=== PATIENT | male | born 1990 | race Hispanic/Latino ===

== ENCOUNTER 2019-05-31 19:16 | Inpatient (IN) | payer OTHER ==
[~2019-05-31] VITALS: Ht 170.2 cm; Wt 72.6 kg
[2019-05-31] MEDS ORDERED: SODIUM CHLORIDE 0.9% 1000ML 1,000 ML IV STA (19:41)
[2019-05-31] MEDS ORDERED: ONDANSETRON HCL INJ 2MG/ML 2ML 2 MG/ML VIAL ONE (19:51)
[2019-05-31] MEDS ORDERED: ONDANSETRON HCL INJ 2MG/ML 2ML 2 MG/ML VIAL IV ONE (20:00)
[2019-05-31] MEDS ORDERED: FAMOTIDINE 20 MG/2 ML VIAL IV ONE (20:00)
--- NOTE | 2019-05-31 20:21 | Diagnostic Imaging Report ---
EXAMINATION: Head CT without contrast. HISTORY:Altered mental status. COMPARISON:None. TECHNIQUE: Multidetector axial images were obtained from the foramen magnum to the vertex without contrast. The images were reconstructed using brain and bone algorithms. Thin section brain images were reformatted into coronal and sagittal planes. Dose modulation, iterative reconstruction, and/or weight based adjustment of the mA/kV was utilized to reduce the radiation dose to as low as reasonably achievable. Intravenous contrast: None IMAGE QUALITY: Acceptable. FINDINGS: Skull/scalp: No lytic or blastic. lesions. No surgical changes. Parenchyma: No abnormal density. No acute hemorrhage, mass or acute major vascular territorial infarct. Arteries: No density suggestive of thrombosis. Dural sinuses: No abnormal density suggestive of thrombosis. Ventricles: No hydrocephalus or displacement. Extra-axial spaces: No abnormal density. Brain volume: Normal for age. Craniocervical junction: No mass, Chiari malformation, or basilar invagination. Sella: No mass. Paranasal/mastoid sinuses: Imaged portions unremarkable. IMPRESSION: No intracranial abnormality. Signed by: Dr. Kirsten Fung M.D. on 05/31/2019 8:18 PM
[2019-05-31 21:30] LABS: ALANINE AMINOTRANSFERASE 129 IU/L (0-55); ALBUMIN 2.9 g/dL (3.5-5.0); ALBUMIN/GLOBULIN RATIO 1.1 (0.8-2.0); ALKALINE PHOSPHATASE 108 IU/L (40-150); ANION GAP 12.9 mmol/L (8-16); BLOOD UREA NITROGEN 17 mg/dL (7-26); BUN/CREATININE RATIO 21 (6-25); CALCIUM 7.8 mg/dL (8.4-10.2); CARBON DIOXIDE 40 mmol/L (22-29); CHLORIDE 61 mmol/L (98-107); EST GLOMERULAR FILTRATION RATE > 60 ML/MIN (60-); GLUCOSE 105 mg/dL (74-118); LIPASE 97 U/L (8-78)
[2019-05-31 21:32] LABS: POTASSIUM 1.9 mmol/L (3.5-5.1); SODIUM 112 mmol/L (136-145)
[2019-05-31 21:35] LABS: BASOPHILS % 0.2 % (0.0-1.0); EOSINOPHILS % 0.1 % (0.0-6.0); HEMOGLOBIN 12.3 g/dL (14.0-18.0); LYMPHOCYTES # (AUTO) 0.8 (1.0-3.2); LYMPHOCYTES % 5.7 % (18.0-39.1); MEAN CORPUSCULAR HEMOGLOBIN 32.2 pg (28-32); MEAN CORPUSCULAR HGB CONC 37.4 g/dL (31-35); MEAN CORPUSCULAR VOLUME 86.1 fL (81-99); MONOCYTES # (AUTO) 1.4 (0.2-0.8); NEUTROPHILS # (AUTO) 11.1 (2.1-6.9); NEUTROPHILS % 82.5 % (38.7-80.0); RED BLOOD COUNT 3.82 x10e6/uL (4.3-5.7)
[2019-05-31] MEDS ORDERED: SODIUM CHLORIDE 3% 500 ML IV ONE (21:45)
[2019-05-31] MEDS ORDERED: POTASSIUM CHLORIDE 10MEQ/100ML 100 ML IV ONE (21:45)
[2019-05-31] MEDS ORDERED: ONDANSETRON HCL INJ 2MG/ML 2ML 2 MG/ML VIAL IV PRN (21:45)
[2019-05-31] MEDS ORDERED: POTASSIUM CHLORIDE 10MEQ EA ONE (21:57)
[2019-05-31 22:03] LABS: PLATELET COUNT 44 x10e3/uL (140-360)
[2019-05-31 22:04] LABS: HEMATOCRIT 32.9 % (38.2-49.6)
[2019-05-31 22:16] LABS: BILIRUBIN,URINE SMALL (NEGATIVE); CLARITY,URINE CLEAR (CLEAR); COLOR,URINE YELLOW (YELLOW); KETONES,URINE TRACE (NEGATIVE); LEUKOCYTE ESTERASE ,URINE NEGATIVE (NEGATIVE); NITRITE,URINE NEGATIVE (NEGATIVE); PROTEIN,URINE DIPSTICK TRACE (NEGATIVE); URINE UROBILINOGEN 4 mg/dL (0.2 - 1)
[2019-05-31 22:21] LABS: AMPHETAMINES SCREEN,URINE NEGATIVE (NEGATIVE); BENZODIAZEPINES SCREEN,URINE NEGATIVE (NEGATIVE); PHENCYCLIDINE SCREEN,URINE NEGATIVE (NEGATIVE)
[2019-05-31 22:27] LABS: BACTERIA,URINE RARE /HPF; RBC,URINE 0-5 /HPF (0-5); WBC,URINE (MAN) 0-5 /HPF (0-5)
[2019-05-31 22:28] LABS: EPITHELIAL CELLS,URINE FEW /LPF
[2019-05-31] MEDS ORDERED: POTASSIUM CHLORIDE 10MEQ EA PO ONE (22:30)
[2019-05-31] MEDS ORDERED: SODIUM CHLORIDE 0.9% 500ML 500 ML ONE (23:07)
[2019-05-31] MEDS: SODIUM CHLORIDE 0.9% 1000ML 1,000 ML IV SCH (23:15)
[2019-05-31 23:23] LABS: LYMPHOCYTES % (MANUAL) 7 % (19-48); MONOCYTES % (MANUAL) 12 % (3.4-9.0); NEUTROPHILS % (MANUAL) 81 % (40-74)
[2019-05-31 23:24] LABS: PLATELET MORPHOLOGY COMMENT FEW EDTA CLUMPING; RBC MORPHOLOGY COMMENT NORMAL
[2019-05-31 23:25] LABS: PLATELET ESTIMATE SLIGHTLY DECREASED
--- NOTE | 2019-05-31 23:41 | Diagnostic Imaging Report ---
EXAM: CT Abdomen and Pelvis WITH contrast INDICATION: Epigastric pain COMPARISON: None. TECHNIQUE: Abdomen and pelvis were scanned utilizing a multidetector helical scanner from the lung base to the pubic symphysis after administration of IV contrast. Coronal and sagittal reformations were obtained. Routine protocol was performed. Scan was performed when during portal venous phase. IV CONTRAST: 100 mL of Isovue 370 ORAL CONTRAST: None COMPLICATIONS: None RADIATION DOSE: Total DLP: 180 mGy*cm Estimated effective dose: (DLP x 0.015 x size factor) mSv CTDIvol has been reviewed. It is below the limits set by the Radiation Protocol Committee (RPC). Dose modulation, iterative reconstruction, and/or weight based adjustment of the mA/kV was utilized to reduce the radiation dose to as low as reasonably achievable. FINDINGS: LINES and TUBES: None. LOWER THORAX: Unremarkable HEPATOBILIARY: No focal hepatic lesions. No biliary ductal dilation. GALLBLADDER: No radio-opaque stones or sludge. No wall thickening. SPLEEN: No splenomegaly. PANCREAS: No focal masses or ductal dilatation. ADRENALS: No adrenal nodules KIDNEYS/URETERS: Kidneys enhance symmetrically. No hydronephrosis. No solid masses. A 1.4 cm left renal simple cyst. No stones. GI TRACT: Mild circumferential thickening and edema of the distal esophageal wall. No abnormal distention, wall thickening, or evidence of bowel obstruction. Appendix is normal. PELVIC ORGANS/BLADDER: Unremarkable. LYMPH NODES: No lymphadenopathy. VESSELS: Unremarkable. PERITONEUM / RETROPERITONEUM: No free air or fluid. BONES: Partial lumbarization of S1. SOFT TISSUES: Unremarkable. IMPRESSION: Findings suggestive of esophagitis. Signed by: Tony Goodwin DO on 05/31/2019 11:37 PM
--- OUTSIDE RECORDS SUMMARY | 2019-05-31 23:58 | XMS REPORT ---
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 Allergies, Adverse Reactions, Alerts This patient has no known allergies or adverse reactions. Medications This patient has no known medications. Results Test Description Test Time Test Comments Text Results Atomic Results Result Comments CT ABDOMEN/PELVIS W 2019-05-31 23:34:00 [place] [address] Patient Name: MICHELE DALTON MR #: [id number] : 1990 Age/Sex: 28/M Req #: [id number] Adm Physician: Ordered by: GRACE HILARIO DO Report #: [id number] Location: ER Room/Bed: Procedure: [id number] CT/CT ABDOMEN/PELVIS W Exam Date: 05/31/19 Exam Time: 2214 REPORT STATUS: Signed EXAM: CT Abdomen and Pelvis WITH contrast INDICATI ON: Epigastric pain COMPARISON: None. TECHNIQUE: Abdomen and pelvis were scanned utilizing a multidetector helical scanner from the lung base to the pubic symphysis after administration of IV contrast. Coronal and sagittal reformations were obtained. Routine protocol was performed. Scan was performed when during portal venous phase. IV CONTRAST: 100 mL of Isovue 370 ORAL CONTRAST: None COMPLICATIONS: None RADIATION DOSE: Total DLP: 180 mGy*cm Estimated effective dose: (DLP x 0.015 x size factor) mSv CTDIvol has been reviewed. It is below the limits set by the Radiation Protocol Committee (RPC). Dose modulation, iterative reconstruction, and/or weight based adjustment of the mA/kV was utilized to reduce the radiation dose to as low as reasonably achievable. FINDINGS: LINES and TUBES: None. LOWER THORAX: Unremarkable HEPATOBILIARY: No focal hepatic lesions. No biliary ductal dilation. GALLBLADDER: No radio-opaque stones or sludge. No wall thickening. SPLEEN: No splenomegaly. PANCREAS: No focal masses or ductal dilatation. ADRENALS: No adrenal nodules KIDNEYS/URETERS: Kidneys enhance symmetrically. No hydronephrosis. No solid masses. A 1.4 cm left renal simple cyst. No stones. GI TRACT: Mild circumferential thickening and edema of the distal esophageal wall. No abnormal distention, wall thickening, or evidence of bowel obstruction. Appendix is normal. PELVIC ORGANS/BLADDER: Unremarkable. LYMPH NODES: No lymphadenopathy. VESSELS: Unremarkable. PERITONEUM / RETROPERITONEUM: No free air or fluid. BONES: Partial lumbarization of S1. SOFT TISSUES: Unremarkable. IMPRESSION: Findings suggestive of esophagitis. Signed by: Tony Goodwin DO on 05/31/2019 11:37 PM Dictated By: TONY GOODWIN DO 36 Transcribed By: WHITNEY on 05/31/192336 COPY TO: GRACE HILARIO DO CT BRAIN WO 2019-05-31 20:16:00 [place] [address] Patient Name: MICHELE DALTON MR #: [id number] : 1990 Age/Sex: 28/M Req #: [id number] Adm Physician: Ordered by: GRACE HILARIO DO Report #: [id number] Location: Room/Bed: Procedure: [id number] CT/CT BRAIN WO Exam Date: 05/31/19 Exam Time: 2004 REPORT STATUS: Signed EXAMINATION: Head CT without contrast. HISTORY:Alter ed mental status. COMPARISON:None. TECHNIQUE: Multidetector axial images were obtained from the foramen magnum to the vertex without contrast. The images were reconstructed using brain and bone algorithms. Thin section brain images were reformatted into coronal and sagittal planes. Dose modulation, iterative reconstruction, and/or weight based adjustment of the mA/kV was utilized to reduce the radiation dose to as low as reasonably achievable. Intravenous contrast: None IMAGE QUALITY: Acceptable. FINDINGS: Skull/scalp: No lytic or blastic. lesions. No surgical changes. Parenchyma: No abnormal density. No acute hemorrhage, mass or acute major vascular territorial infarct. Arteries: No density suggestive of thrombosis. Dural sinuses: No abnormal density suggestive of thrombosis. Ventricles: No hydrocephalus or displacement. Extra- axial spaces: No abnormal density. Brain volume: Normal for age. Craniocervical junction: No mass, Chiari malformation, or basilar invagination. Sella: No mass. Paranasal/mastoid sinuses: Imaged portions unremarkable. IMPRESSION: No intracranial abnormality. Signed by: Dr. Kirsten Fung M.D. on 05/31/2019 8:18 PM Dictated By: KIRSTEN FUNG MD 17 Transcribed By: WHITNEY on 05/31/192017 COPY TO: GRACE HILARIO DO
[2019-06-01] VITALS (21 sets, daily range): BP systolic 108–147; BP diastolic 49–106
--- NOTE | 2019-06-01 | NUR ---
Report received from Odilia DEL CID.
[2019-06-01] MEDS ORDERED: SODIUM CHLORIDE 0.9% 50ML 50 ML ONE (00:38)
[2019-06-01] MEDS ORDERED: IOPAMIDOL 370 MG/ML 200 ML INFUS..BTL INJ ONE (00:38)
--- NOTE | 2019-06-01 01:50 | NUR ---
New orders received from Dr. Abby Navarrete, refer to forder operator.
[2019-06-01] MEDS: SODIUM CHLORIDE 0.9% 1000ML 1,000 ML IV SCH ×3 (02:01→23:54)
[2019-06-01 04:16] LABS: BASOPHILS % 0.2 % (0.0-1.0); EOSINOPHILS % 0.2 % (0.0-6.0); HEMATOCRIT 33.4 % (38.2-49.6); HEMOGLOBIN 12.5 g/dL (14.0-18.0); LYMPHOCYTES # (AUTO) 1.1 (1.0-3.2); LYMPHOCYTES % 9.9 % (18.0-39.1); MEAN CORPUSCULAR HEMOGLOBIN 31.6 pg (28-32); MEAN CORPUSCULAR HGB CONC 37.4 g/dL (31-35); MEAN CORPUSCULAR VOLUME 84.6 fL (81-99); MONOCYTES # (AUTO) 1.3 (0.2-0.8); MONOCYTES % 11.9 % (4.4-11.3); NEUTROPHILS # (AUTO) 8.4 (2.1-6.9); NEUTROPHILS % 76.5 % (38.7-80.0); PLATELET COUNT 130 x10e3/uL (140-360); RED BLOOD COUNT 3.95 x10e6/uL (4.3-5.7); RED CELL DISTRIBUTION WIDTH 11.3 % (11.7-14.4)
[2019-06-01 04:59] LABS: ALANINE AMINOTRANSFERASE 126 IU/L (0-55); ALBUMIN 2.8 g/dL (3.5-5.0); ALBUMIN/GLOBULIN RATIO 1.1 (0.8-2.0); ALKALINE PHOSPHATASE 96 IU/L (40-150); ANION GAP 11.8 mmol/L (8-16); CALCIUM 8.1 mg/dL (8.4-10.2); CHLORIDE 67 mmol/L (98-107); CREATININE, SERUM 0.78 mg/dL (0.72-1.25); EST GLOMERULAR FILTRATION RATE > 60 ML/MIN (60-); GLUCOSE 102 mg/dL (74-118); MAGNESIUM 2.5 MG/DL (1.3-2.1); PHOSPHORUS 1.3 MG/DL (2.3-4.7)
[2019-06-01 05:05] LABS: CARBON DIOXIDE 42 mmol/L (22-29); POTASSIUM 1.8 mmol/L (3.5-5.1); SODIUM 119 mmol/L (136-145)
[2019-06-01] MEDS ORDERED: POTASSIUM CHLORIDE 20MEQ/100ML 200 ML IV ONE (05:15)
[2019-06-01] MEDS ORDERED: POTASSIUM CHLORIDE 20 MEQ TAB CR PO ONE (05:15)
[2019-06-01 05:22] LABS: BLOOD UREA NITROGEN 13 mg/dL (7-26); BUN/CREATININE RATIO 17 (6-25)
[2019-06-01] MEDS ORDERED: DIPHENOXYLATE/ATROPINE TAB PO ONE (05:45)
[2019-06-01 07:54] LABS: PLATELET ESTIMATE SLIGHTLY DECREASED; PLATELET MORPHOLOGY COMMENT NORMAL
[2019-06-01 08:19] LABS: BASOPHILS % 0.3 % (0.0-1.0); EOSINOPHILS % 0.1 % (0.0-6.0); HEMATOCRIT 35.2 % (38.2-49.6); HEMOGLOBIN 13.3 g/dL (14.0-18.0); LYMPHOCYTES # (AUTO) 0.9 (1.0-3.2); LYMPHOCYTES % 6.7 % (18.0-39.1); MEAN CORPUSCULAR HEMOGLOBIN 32.1 pg (28-32); MEAN CORPUSCULAR HGB CONC 37.8 g/dL (31-35); MONOCYTES # (AUTO) 1.4 (0.2-0.8); MONOCYTES % 10.5 % (4.4-11.3); NEUTROPHILS # (AUTO) 10.9 (2.1-6.9); NEUTROPHILS % 80.9 % (38.7-80.0); PLATELET COUNT 128 x10e3/uL (140-360); RED BLOOD COUNT 4.14 x10e6/uL (4.3-5.7); RED CELL DISTRIBUTION WIDTH 11.3 % (11.7-14.4)
[2019-06-01 08:42] LABS: ALANINE AMINOTRANSFERASE 137 IU/L (0-55); ALKALINE PHOSPHATASE 98 IU/L (40-150); ANION GAP 11.2 mmol/L (8-16); BLOOD UREA NITROGEN 10 mg/dL (7-26); BUN/CREATININE RATIO 14 (6-25); CALCIUM 8.1 mg/dL (8.4-10.2); CARBON DIOXIDE 36 mmol/L (22-29); CHLORIDE 79 mmol/L (98-107); CREATININE, SERUM 0.74 mg/dL (0.72-1.25); EST GLOMERULAR FILTRATION RATE > 60 ML/MIN (60-); GLUCOSE 116 mg/dL (74-118); SODIUM 124 mmol/L (136-145)
[2019-06-01] MEDS: DIPHENOXYLATE/ATROPINE TAB PO PRN ×3 (08:44→19:44)
[2019-06-01 08:50] LABS: POTASSIUM 2.2 mmol/L (3.5-5.1)
[2019-06-01] MEDS ORDERED: POTASSIUM CHLORIDE 20 MEQ TAB CR PO SCH (09:00)
[2019-06-01] MEDS ORDERED: POTASSIUM CHLORIDE 10MEQ EA PO SCH ×2 (09:00)
[2019-06-01 09:04] LABS: MAGNESIUM 2.3 MG/DL (1.3-2.1)
--- NOTE | 2019-06-01 09:17 | NUR ---
H&P cc: lethargy and generalized weakness HPI: 28yoM, PCP none, developed fatigue, found to be severe hyponatremic. Family notes that pt was lethargic and weak. Ongoing for 2 days; Pt also had diarrhea at home, unknown amount. Further questioning reveals that pt drinks about 3 cans of alcohol/whisky about 4 days at times, admits to binge drinking. PMH:none PSHx: none Allergies; see emr FH/SH: single; occ etoh; no cigs; MEds; see MAR ROS: no f/c/s/N/V/D/CP/sob/vision changes/skin rash/dizziness. v/s; revd PE: nad anicteric ns1s2 mod bs soft nt nd no e/t a&ox3; arenas skin dry n. affect labs/meds; revd A/P: 28yoM Severe hyponatremia Thrombocytopenia Hypophosphatemia Transaminitis Hypokalemia Alcoholism "Beer potomaina" PLAN 3% saline overnight; now stop and change to NS Hepatitis panel SW for counseling on alcoholism/AA/resources SCD folic acid/thiamine Dispo: cct>35mins Silver Carvajal MD, PhD.
[2019-06-01] MEDS: FOLIC ACID 1 MG TAB PO SCH (11:01)
[2019-06-01] MEDS: THIAMINE HCL 100 MG TAB PO SCH (11:01)
--- NOTE | 2019-06-01 11:09 | Diagnostic Imaging Report ---
RIGHT UPPER QUADRANT ULTRASOUND TECHNIQUE: Ultrasound evaluation of the right upper quadrant abdomen. Color Doppler evaluation was utilized to supplement the evaluation. HISTORY: Elevated liver enzymes COMPARISON: None available. DISCUSSION: LIVER: No focal lesion identified. The liver measures 16 cm in length in the right mid-clavicular line. BILIARY: Echogenic debris within the gallbladder, but no gallbladder stone, wall thickening, or pericholecystic fluid. The sonographic Morales's sign is reported as negative. Common bile duct measures 0.2 cm. RIGHT KIDNEY: 12 cm in length. No hydronephrosis, solid mass, or cystic lesion identified. PANCREAS: Partially obscured by regional bowel gas, but no abnormality identified within this limitation. PERITONEUM: No free fluid. VASCULATURE: The visualized portions of the aorta and inferior vena cava appear unremarkable. The portal vein is patent with hepatopedal flow. IMPRESSION: 1. No acute sonographic abnormality. 2. Borderline enlargement of the liver. Signed by: Dr. Joe Jones D.O., M.M.M. on 06/01/2019 11:06 AM
[2019-06-01 11:23] LABS: WBC,FECAL (FECAL LACTOFERRIN) POSITIVE (NEGATIVE)
[2019-06-01 12:11] LABS: C DIFFICILE TOXIN A&B AMP PROB NEGATIVE (NEGATIVE)
--- NOTE | 2019-06-01 14:02 | Diagnostic Imaging Report ---
A single frontal view of the chest. HISTORY: Hyponatremia COMPARISON: None available. DISCUSSION: Portable technique, limits sensitivity of the exam. Overlying artifacts. Tubes/Lines: None Lungs and pleura: The lungs are well inflated. No evidence of a consolidative pneumonia or pulmonary alveolar edema. No definite pleural effusion or pneumothorax is identified. Heart and mediastinum: The cardiomediastinal silhouette appear(s) unremarkable. Bones and soft tissues: Appear unremarkable, given this limited exam. IMPRESSION: No acute radiographic abnormality. Signed by: Dr. Joe Jones D.O., M.M.M. on 06/01/2019 1:59 PM
[2019-06-01] MEDS ORDERED: POTASSIUM PHOSPHATE 20 MM in SODIUM CHLORIDE 0.9% 250ML 250 ML IV ONE (14:15)
[2019-06-01] MEDS ORDERED: THIAMINE HCL INJ 100 MG/ML 2ML VIAL IV ONE (16:00)
[2019-06-01] MEDS ORDERED: CHLORDIAZEPOXIDE HCL 25 MG CAP PO PRN (16:00)
--- NOTE | 2019-06-01 16:09 | NUR ---
Pulmonary/[facility] [id number]
[2019-06-01] MEDS: SUCRALFATE 1 GM/10 ML SUSP NG SCH ×2 (16:30→20:00)
[2019-06-01] MEDS ORDERED: THIAMINE HCL IV ONE (17:00)
[2019-06-01] MEDS ORDERED: SODIUM CHLORIDE 0.9% IV ONE (17:00)
[2019-06-01 17:10] LABS: INR 0.84; PARTIAL THROMBOPLASTIN TIME 23.8 seconds (23.8-35.5)
[2019-06-01 17:17] LABS: ANION GAP 12.7 mmol/L (8-16); BLOOD UREA NITROGEN 6 mg/dL (7-26); BUN/CREATININE RATIO 10 (6-25); CARBON DIOXIDE 35 mmol/L (22-29); CHLORIDE 80 mmol/L (98-107); CREATININE, SERUM 0.63 mg/dL (0.72-1.25); EST GLOMERULAR FILTRATION RATE > 60 ML/MIN (60-); GLUCOSE 105 mg/dL (74-118)
[2019-06-01 17:19] LABS: PHOSPHORUS 1.7 MG/DL (2.3-4.7)
[2019-06-01 17:20] LABS: POTASSIUM 2.7 mmol/L (3.5-5.1); SODIUM 125 mmol/L (136-145)
[2019-06-01] MEDS: POTASSIUM CHLORIDE 20 MEQ TAB CR PO SCH (19:44)
--- NOTE | 2019-06-01 20:50 | Consultation ---
DATE OF CONSULTATION: 06/01/2019 Pulmonary/Critical Care Medicine Consult HISTORY OF PRESENT ILLNESS: Mr. Ron is a pleasant 28-year-old gentleman with critical hyponatremia. The patient chronically drinks 3 large size beers a day for 3-4 days a week. He has been doing this for years. He has never had DTs. He has never had seizures. The patient is having recent falls and he has bruising on his right arm. The patient presented to emergency room with worsening balance. He is having additional diarrhea for 2 days. He is having lightheadedness and trouble thinking. In the emergency room, he is found with sodium 112, potassium 1.9, 40 bicarbonate. Calcium 8.1, phosphorus 1.3, magnesium 2.5, AST 199, ALT 126. Albumin is 2.8. At this point, he is admitted to the ICU. I am consulted to assist in care. PAST MEDICAL HISTORY: None. MEDICATIONS: None, except for vitamin. ALLERGIES: NO KNOWN DRUG ALLERGIES. SOCIAL HISTORY: Only rare social tobacco. No drugs. He drinks 3 large bottles of beer about 4 days a week. He does have a 7-year-old child. He is currently and living alone. 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 FAMILY HISTORY: Noncontributory. REVIEW OF SYSTEMS: The patient with difficulty speaking as he feels he cannot concentrate well and he has low energy. OBJECTIVE: VITAL SIGNS: Afebrile, vital signs stable noted and repeated per chart record. GENERAL: In no acute distress, alert and calm, but he feels cloudy when it comes to thinking. HEENT: Normocephalic, atraumatic. NECK: Supple. Throat midline. LUNGS: Bilateral air entry, clear. CARDIOVASCULAR: S1, S2. No murmurs, rubs, or gallops. ABDOMEN: Soft, nontender. EXTREMITIES: No clubbing, no cyanosis, no edema. INTEGUMENT: No rash. For the most part, no generalized purpura. The patient has multiple moderate-sized bruises to his right upper arm and elbow area and a few excoriations there. These are from the repetitive falls. LABORATORY DATA: Labs reviewed per the chart record. white count 30.4, hematocrit 35, and 128 platelets now, platelets were 44 on admit. IMPRESSION AND PLAN: 1. Critical hyponatremia, symptomatic at early stages. 2. Acute alcohol abuse and chronic alcohol dependency. 3. Critical hyponatremia. 4. Hypophosphatemia. 5. Mild alcoholic hepatitis, active. 6. Moderate protein malnutrition. 7. Diarrhea, worse for the last 2 days, under evaluation. 8. Encephalopathy, mild and toxic metabolic component. Possible underlying cerebral alcohol disease. 9. Radiographic esophagitis due to the excessive drinking. 10. Recent falls, worrisome for Wernicke encephalopathy. Slow repletion of sodium levels. Alcohol abstinence. Serial evaluation to ensure the patient does not go into severe delirium tremens. Give vitamin and thiamine especially. Replete potassium and phosphorus slowly. Follow up with diarrhea for resolution. Esophagitis needs followup to ensure gradual improvement. Liver tests need assessment and hopefully with this get better with alcohol abstinence, or else we have to consider escalation treatment, but likely it will get better as the patient is young. Thank you very much, Dr. Carvajal, for this consult. Please call for questions. MD BASILIA Munson/MODL /[id number]
[2019-06-02] VITALS (22 sets, daily range): BP systolic 105–148; BP diastolic 62–101
--- NOTE | 2019-06-02 04:06 | Consultation ---
DATE OF CONSULTATION: 06/01/2019 Nephrology Consultation REASON FOR CONSULTATION: 1. Hypokalemia. 2. Hypophosphatemia. HISTORY OF PRESENT ILLNESS: The patient is a 28-year-old male with a self-admitted history of chronic alcohol dependence. He calls his mom last night complaining of being very weak and unable to get around. When the mother did indeed find him to be very lethargic but alert, she brought him to the emergency room where initial labs showed severe hypokalemia and hypophosphatemia along with hyponatremia. The patient was also found to be dehydrated. He was started on IV normal saline, given a couple of boluses of IV potassium chloride 20 mEq each and admitted to the ICU. He was always hemodynamically stable. The patient has no known past medical history and is on no medications. According to him, he was not able to eat or drink much in the last 2 days, complaining of nausea and some diarrhea. His last alcohol intake was about 2-3 days ago. Denies taking any other drug or chemical. PAST MEDICAL HISTORY: As per HPI above. FAMILY HISTORY: Noncontributory. SOCIAL HISTORY: Alcohol dependence as noted. MEDICATIONS: Thiamine 100 mg daily p.o., folic acid 1 mg p.o. daily, potassium chloride 40 mEq p.o. daily, IV normal saline 100 mL/h. ALLERGIES: NONE KNOWN. REVIEW OF SYSTEMS: Negative except as noted in the HPI. PHYSICAL EXAMINATION: GENERAL: Pleasant young male, who is fully alert and oriented. Appears in no acute distress. VITAL SIGNS: Stable. Heart rate is 78 per minute and regular, respirations 13 per minute, blood pressure 132/86, pulse oxymetry is 100% on room air. SKIN: Somewhat decreased turgor, but no lesions or rash. HEENT: Normocephalic, atraumatic. NECK: Supple without jugular venous longterm or thyromegaly. CHEST: Auscultation reveals clear breath sounds bilaterally. CARDIOVASCULAR: Normal S1, S2 without murmur, rub, or gallop. ABDOMEN: Soft, depressible, nontender. Bowel sounds are present. EXTREMITIES: Without pitting edema or cyanosis. NEUROLOGICAL: Alert and oriented x3. Able to move all 4 extremities to command. No obvious focal deficits. LABORATORY DATA: Chest x-ray is just done and report is pending. Ultrasound of the right upper quadrant of abdomen mentions right kidney, which is 12 cm in length without any hydronephrosis or other abnormality. IMPRESSION: 1. Electrolyte abnormalities in the form of hyponatremia, hypokalemia, and hypophosphatemia in a young male with no past history, admitted with literally no oral intake in the last 2 days and prior history of alcohol dependence. All of these electrolyte abnormalities can be explained by insufficient intake of electrolytes associated with at least some vomiting and diarrhea. He does not seem to have any muscle paralysis or noticeable weakness of skeletal muscles from the hypokalemia. His mentation is clear. The hyponatremia does appear acute. 2. Dehydration, secondary to poor oral intake recently. 3. Chronic alcohol dependence. RECOMMENDATIONS: 1. Agree with replacement of potassium and IV normal saline so far. We will continue same for now. 2. I have increased his oral potassium replacement to 40 mEq b.i.d. 3. Give IV potassium phosphate 20 mmol x1 today. Hopefully, as he takes a regular diet, his serum phosphorus and potassium will come up. 4. We will repeat electrolytes later this evening to assess progress. Given the acute nature of the hyponatremia, there is less concern for any osmotic demyelination upon correction of the serum sodium. However, we will monitor. I will follow the patient along and offer recommendations as indicated. Thank you for allowing me to participate in the care of this gentleman. Hugo Toth MD [facility]/MODL /[id number]
[2019-06-02 05:13] LABS: BASOPHILS # (AUTO) 0.1 (0.0-0.1); BASOPHILS % 0.4 % (0.0-1.0); EOSINOPHILS % 0.1 % (0.0-6.0); HEMATOCRIT 32.3 % (38.2-49.6); HEMOGLOBIN 12.1 g/dL (14.0-18.0); LYMPHOCYTES # (AUTO) 1.3 (1.0-3.2); LYMPHOCYTES % 10.9 % (18.0-39.1); MEAN CORPUSCULAR HEMOGLOBIN 31.8 pg (28-32); MEAN CORPUSCULAR HGB CONC 37.5 g/dL (31-35); MONOCYTES # (AUTO) 1.4 (0.2-0.8); MONOCYTES % 11.4 % (4.4-11.3); PLATELET COUNT 135 x10e3/uL (140-360); RED CELL DISTRIBUTION WIDTH 11.6 % (11.7-14.4)
[2019-06-02 05:40] LABS: ALANINE AMINOTRANSFERASE 116 IU/L (0-55); ALBUMIN 2.8 g/dL (3.5-5.0); ALKALINE PHOSPHATASE 76 IU/L (40-150); ANION GAP 9.2 mmol/L (8-16); BLOOD UREA NITROGEN < 5 mg/dL (7-26); CALCIUM 8.1 mg/dL (8.4-10.2); CARBON DIOXIDE 35 mmol/L (22-29); CHLORIDE 80 mmol/L (98-107); CREATININE, SERUM 0.62 mg/dL (0.72-1.25); EST GLOMERULAR FILTRATION RATE > 60 ML/MIN (60-); GLUCOSE 115 mg/dL (74-118); SODIUM 122 mmol/L (136-145)
[2019-06-02 05:41] LABS: BUN/CREATININE RATIO 8 (6-25); POTASSIUM 2.2 mmol/L (3.5-5.1)
[2019-06-02 06:05] LABS: MAGNESIUM 1.8 MG/DL (1.3-2.1); PHOSPHORUS 1.2 MG/DL (2.3-4.7)
[2019-06-02] MEDS ORDERED: POTASSIUM CHLORIDE 20MEQ/100ML 200 ML IV ONE (06:30)
[2019-06-02 06:41] LABS: LYMPHOCYTES % (MANUAL) 14 % (19-48); MONOCYTES % (MANUAL) 11 % (3.4-9.0); NEUTROPHILS % (MANUAL) 75 % (40-74); PLATELET ESTIMATE MODERATELY DECREASED; PLATELET MORPHOLOGY COMMENT MANY LARGE; RBC MORPHOLOGY COMMENT NORMAL
[2019-06-02] MEDS ORDERED: POTASSIUM CHLORIDE 20 MEQ TAB CR PO ONE (06:45)
--- NOTE | 2019-06-02 06:49 | NUR ---
IM- progress note O/N no events ROS: no f/c/s/N/V/D/CP/sob/vision changes/skin rash/dizziness. v/s; revd PE: nad anicteric ns1s2 mod bs soft nt nd no e/t a&ox3; arenas skin dry n. affect labs/meds; revd A/P: 28yoM Severe hyponatremia Thrombocytopenia Hypophosphatemia Transaminitis Hypokalemia Alcoholism "Beer potomaina" PLAN 3% saline overnight; now stop and change to NS Hepatitis panel SW for counseling on alcoholism/AA/resources SCD folic acid/thiamine Dispo: cct>35mins 06/02 liver imaging negative; replace lytes; f/u labs; improving. platelets improving; Na beginning to improve; replace K; cct>35mins. Silver Carvajal MD, PhD.
[2019-06-02] MEDS ORDERED: POTASSIUM PHOSPHATE 20 MM in SODIUM CHLORIDE 0.9% 250ML 250 ML IV ONE ×2 (07:30→18:15)
[2019-06-02] MEDS: SUCRALFATE 1 GM/10 ML SUSP NG SCH ×4 (08:00→20:14)
[2019-06-02] MEDS: POTASSIUM CHLORIDE 20 MEQ TAB CR PO SCH ×2 (08:00→18:01)
[2019-06-02] MEDS: FOLIC ACID 1 MG TAB PO SCH (08:00)
[2019-06-02] MEDS: MULTIVITAMINS/MINERALS TAB PO SCH (08:00)
[2019-06-02] MEDS: THIAMINE HCL 100 MG TAB PO SCH (08:00)
[2019-06-02] MEDS: SODIUM CHLORIDE 0.9% 1000ML 1,000 ML IV SCH (08:01)
[2019-06-02] MEDS ORDERED: KCL 20MEQ/.9 SOD CHL 1,000 ML IV SCH (11:30)
--- NOTE | 2019-06-02 11:47 | NUR ---
patient out of bed to toilet. tolerating well
[2019-06-02 17:50] LABS: ANION GAP 10.7 mmol/L (8-16); BLOOD UREA NITROGEN < 5 mg/dL (7-26); BUN/CREATININE RATIO 8 (6-25); CALCIUM 8.6 mg/dL (8.4-10.2); CARBON DIOXIDE 31 mmol/L (22-29); CHLORIDE 85 mmol/L (98-107); CREATININE, SERUM 0.66 mg/dL (0.72-1.25); EST GLOMERULAR FILTRATION RATE > 60 ML/MIN (60-); GLUCOSE 118 mg/dL (74-118); PHOSPHORUS 2.3 MG/DL (2.3-4.7); SODIUM 124 mmol/L (136-145)
[2019-06-02 17:51] LABS: POTASSIUM 2.7 mmol/L (3.5-5.1)
[2019-06-02] MEDS ORDERED: POTASSIUM CHLORIDE 20MEQ/100ML 100 ML IV ONE (18:15)
[2019-06-02] MEDS: POTASSIUM CHL 40 MEQ in SODIUM CHLORIDE 0.9% 1000ML 1,000 ML IV SCH (21:50)
--- NOTE | 2019-06-02 22:05 | NUR ---
Pulmonary / critical care medicine date of encounter 06/02/2019 SUBJECTIVE: Patient was seen and examined at bedside. Patient with more brisk mentation. No nausea, no emesis. ssodium is increasing at a controlled pace. His potassium is more stable REVIEW OF SYSTEMS: no headaches, no double vision OBJECTIVE: VITAL SIGNS: vital signs stable noted aand reviewed per chart record. GENERAL: In no acute distress, alert and calm . Patient is oriented. HEENT: Normocephalic, atraumatic. NECK: Supple. Throat midline. LUNGS: Bilateral air entry, clear. CARDIOVASCULAR: S1, S2. No murmurs, rubs, or gallops. ABDOMEN: Soft, nontender. EXTREMITIES: No clubbing, no cyanosis, no edema. INTEGUMENT: No rash. For the most part, no generalized purpura. multiple moderate-sized bruises to his right upper arm and elbow area LABORATORY DATA: sodium 122, potassium 2.2, 35 bicarbonate, BUN less than 5, creatinine 0.6. AST 124, ALT 116. IMPRESSION AND PLAN: 1. Critical hyponatremia, symptomatic/ improving. 2. Acute alcohol intoxication and chronic alcohol dependency. 3. Critical hyponatremia. 4. Hypophosphatemia. 5. Mild alcoholic hepatitis, active/ improving likely. 6. Moderate protein malnutrition. 7. Diarrhea 8. Encephalopathy, mild and toxic metabolic component. Possible underlying cerebral alcohol disease/early Wernicke encephalopathy. 9. Radiographic esophagitis continue slow repletion of sodium Potassium, phosphorus repletion Alcohol abstinence When necessary Librium okay Diet orally, give vitamin replacement Follow-up liver testing to ensure improvement//stability thank you very much Dr. Carvajal.
[2019-06-03] VITALS (14 sets, daily range): BP systolic 103–147; BP diastolic 73–97
[2019-06-03 05:04] LABS: BASOPHILS # (AUTO) 0.1 (0.0-0.1); BASOPHILS % 0.9 % (0.0-1.0); EOSINOPHILS % 0.2 % (0.0-6.0); HEMOGLOBIN 11.8 g/dL (14.0-18.0); LYMPHOCYTES # (AUTO) 2.2 (1.0-3.2); LYMPHOCYTES % 16.6 % (18.0-39.1); MEAN CORPUSCULAR HEMOGLOBIN 31.5 pg (28-32); MEAN CORPUSCULAR HGB CONC 35.8 g/dL (31-35); MONOCYTES # (AUTO) 1.8 (0.2-0.8); MONOCYTES % 13.7 % (4.4-11.3); NEUTROPHILS # (AUTO) 8.1 (2.1-6.9); NEUTROPHILS % 60.7 % (38.7-80.0); PLATELET COUNT 189 x10e3/uL (140-360); RED BLOOD COUNT 3.75 x10e6/uL (4.3-5.7); RED CELL DISTRIBUTION WIDTH 12.1 % (11.7-14.4)
[2019-06-03 05:22] LABS: ALANINE AMINOTRANSFERASE 146 IU/L (0-55); ALBUMIN 2.9 g/dL (3.5-5.0); ALBUMIN/GLOBULIN RATIO 1.1 (0.8-2.0); ALKALINE PHOSPHATASE 96 IU/L (40-150); BLOOD UREA NITROGEN 5 mg/dL (7-26); BUN/CREATININE RATIO 7 (6-25); CALCIUM 8.4 mg/dL (8.4-10.2); CARBON DIOXIDE 29 mmol/L (22-29); CHLORIDE 88 mmol/L (98-107); CREATININE, SERUM 0.67 mg/dL (0.72-1.25); EST GLOMERULAR FILTRATION RATE > 60 ML/MIN (60-); GLUCOSE 112 mg/dL (74-118); SODIUM 126 mmol/L (136-145)
--- NOTE | 2019-06-03 06:24 | NUR ---
IM- progress note O/N no events ROS: no f/c/s/N/V/D/CP/sob/vision changes/skin rash/dizziness. v/s; revd PE: nad anicteric ns1s2 mod bs soft nt nd no e/t a&ox3; arenas skin dry n. affect labs/meds; revd A/P: 28yoM Severe hyponatremia Thrombocytopenia Hypophosphatemia Transaminitis Hypokalemia Alcoholism "Beer potomaina" PLAN 3% saline overnight; now stop and change to NS Hepatitis panel SW for counseling on alcoholism/AA/resources SCD folic acid/thiamine Dispo: cct>35mins 06/02 liver imaging negative; replace lytes; f/u labs; improving. platelets improving; Na beginning to improve; replace K; cct>35mins. 06/03 Na continues to improve; replace K and phos. Silver Carvajal MD, PhD.
[2019-06-03] MEDS: SUCRALFATE 1 GM/10 ML SUSP NG SCH ×4 (07:26→21:00)
[2019-06-03] MEDS ORDERED: POTASSIUM PHOSPHATE 20 MM in SODIUM CHLORIDE 0.9% 250ML 250 ML IV ONE ×2 (07:30→20:00)
[2019-06-03] MEDS: POTASSIUM CHL 40 MEQ in SODIUM CHLORIDE 0.9% 1000ML 1,000 ML IV SCH ×2 (08:00→17:43)
[2019-06-03] MEDS: THIAMINE HCL 100 MG TAB PO SCH (08:09)
[2019-06-03] MEDS: MULTIVITAMINS/MINERALS TAB PO SCH (08:09)
[2019-06-03] MEDS: FOLIC ACID 1 MG TAB PO SCH (08:09)
[2019-06-03] MEDS: POTASSIUM CHLORIDE 20 MEQ TAB CR PO SCH ×2 (08:09→17:01)
--- NOTE | 2019-06-03 10:29 | NUR ---
PROVIDED RESOURCES FOR AA LOCAL AND STATEWIDE MEETINGS AND IN/OUT PT RESOURCES FOR FUTURE REFERENCE.
[2019-06-03 10:45] LABS: LYMPHOCYTES % (MANUAL) 17 % (19-48); MONOCYTES % (MANUAL) 14 % (3.4-9.0); NEUTROPHILS % (MANUAL) 69 % (40-74); PLATELET ESTIMATE MODERATELY DECREASED
[2019-06-03 10:46] LABS: RBC MORPHOLOGY COMMENT NORMAL
--- NOTE | 2019-06-03 11:20 | NUR ---
GAVE RESOURCES FOR AA AND IN/OP RESOURCES FOR PT TO FOLLOW UP UPON DISCHARGE.
--- NOTE | 2019-06-03 12:13 | NUR ---
PATIENT GIVEN WRITTEN INFORMATION REGARDING POTASSIUM CONTAINING FOODS. Addendum: 06/03/19 at 1214 by Dawna Sky RN Amended: Links added.
[2019-06-03 16:42] LABS: MAGNESIUM 1.7 MG/DL (1.3-2.1); PHOSPHORUS 2.3 MG/DL (2.3-4.7); POTASSIUM 3.1 mmol/L (3.5-5.1)
[2019-06-03] MEDS: PHOSPHORUS 250 MG TAB PO SCH (17:01)
[2019-06-03] MEDS ORDERED: MAGNESIUM SULFATE 2GM/50ML 50 ML IV ONE (17:15)
[2019-06-03] MEDS ORDERED: POTASSIUM CHLORIDE 20MEQ/100ML 200 ML IV ONE (18:00)
[2019-06-03 18:32] LABS: ANION GAP 13.2 mmol/L (8-16); BLOOD UREA NITROGEN 7 mg/dL (7-26); BUN/CREATININE RATIO 10 (6-25); CALCIUM 8.5 mg/dL (8.4-10.2); CARBON DIOXIDE 24 mmol/L (22-29); CHLORIDE 93 mmol/L (98-107); CREATININE, SERUM 0.71 mg/dL (0.72-1.25); EST GLOMERULAR FILTRATION RATE > 60 ML/MIN (60-); GLUCOSE 156 mg/dL (74-118); PHOSPHORUS 2.4 MG/DL (2.3-4.7); POTASSIUM 3.2 mmol/L (3.5-5.1); SODIUM 127 mmol/L (136-145)
--- NOTE | 2019-06-03 20:30 | NUR ---
PT TRANSFERRED FROM ICU TO FLOOR VIA W/C, TELE ON PT #14, IV TO RIGHT FA INTACT, IV TO LEFT AC INFILTRATED. CALL LIGHT IN REACH, PT ORIENTED TO ROOM, FAMILY AT BEDSIDE
--- NOTE | 2019-06-03 23:14 | NUR ---
Pulmonary / critical care medicine date of encounter 06/03/2019 SUBJECTIVE: patient continues on walk. Normal saline at 100 cc per hour, Sodium slowly increasing. Eating well with bowel movements. REVIEW OF SYSTEMS: no headaches, no double vision OBJECTIVE: VITAL SIGNS: vital signs stable noted and reviewed per chart record. GENERAL: NAD, alert & calm . Patient is oriented. HEENT: Normocephalic, atraumatic. NECK: Supple. Throat midline. LUNGS: Bilateral air entry, clear. CARDIOVASCULAR: S1, S2. No murmurs, rubs, or gallops. ABDOMEN: Soft, nontender. EXTREMITIES: No clubbing, no cyanosis, no edema. INTEGUMENT: No rash. no gashes LABORATORY DATA: sodium 126, potassium 3.0, LFTs decreasing IMPRESSION AND PLAN: 1. Critical hyponatremia, symptomatic/ improving. 2. Acute alcohol intoxication and chronic alcohol dependency. 3. Critical hyponatremia. 4. Hypophosphatemia. 5. Mild alcoholic hepatitis, active/ improving likely. 6. Moderate protein malnutrition. 7. Diarrhea 8. Encephalopathy, mild and toxic metabolic component. Possible underlying cerebral alcohol disease/early Wernicke encephalopathy. 9. Radiographic esophagitis continue slow repletion of sodium Potassium repletion Alcohol abstinence When necessary Librium okay-- not requiring Diet, give vitamin replacement patient can leave the ICU thank you very much Dr. Carvajal.
[2019-06-04] VITALS (8 sets, daily range): BP systolic 120–163; BP diastolic 70–95
[2019-06-04 05:19] LABS: BASOPHILS % 0.2 % (0.0-1.0); EOSINOPHILS # (AUTO) 0.1 (0.0-0.4); EOSINOPHILS % 0.7 % (0.0-6.0); HEMATOCRIT 32.2 % (38.2-49.6); HEMOGLOBIN 11.2 g/dL (14.0-18.0); LYMPHOCYTES # (AUTO) 2.9 (1.0-3.2); LYMPHOCYTES % 19.5 % (18.0-39.1); MEAN CORPUSCULAR HEMOGLOBIN 32.1 pg (28-32); MEAN CORPUSCULAR HGB CONC 34.8 g/dL (31-35); MEAN CORPUSCULAR VOLUME 92.3 fL (81-99); MONOCYTES # (AUTO) 1.7 (0.2-0.8); MONOCYTES % 11.5 % (4.4-11.3); NEUTROPHILS # (AUTO) 7.1 (2.1-6.9); NEUTROPHILS % 48.2 % (38.7-80.0); PLATELET COUNT 220 x10e3/uL (140-360); RED BLOOD COUNT 3.49 x10e6/uL (4.3-5.7); RED CELL DISTRIBUTION WIDTH 12.8 % (11.7-14.4)
[2019-06-04 05:42] LABS: ALANINE AMINOTRANSFERASE 201 IU/L (0-55); ALBUMIN 2.8 g/dL (3.5-5.0); ALKALINE PHOSPHATASE 92 IU/L (40-150); BLOOD UREA NITROGEN 8 mg/dL (7-26); BUN/CREATININE RATIO 13 (6-25); CALCIUM 8.4 mg/dL (8.4-10.2); CARBON DIOXIDE 23 mmol/L (22-29); CHLORIDE 98 mmol/L (98-107); CREATININE, SERUM 0.64 mg/dL (0.72-1.25); EST GLOMERULAR FILTRATION RATE > 60 ML/MIN (60-); GLUCOSE 101 mg/dL (74-118); SODIUM 129 mmol/L (136-145)
--- NOTE | 2019-06-04 06:47 | NUR ---
IM- progress note O/N no events ROS: no f/c/s/N/V/D/CP/sob/vision changes/skin rash/dizziness. v/s; revd PE: nad anicteric ns1s2 mod bs soft nt nd no e/t a&ox3; arenas skin dry n. affect labs/meds; revd A/P: 28yoM Severe hyponatremia Thrombocytopenia Hypophosphatemia Transaminitis Hypokalemia Alcoholism "Beer potomaina" PLAN 3% saline overnight; now stop and change to NS Hepatitis panel SW for counseling on alcoholism/AA/resources SCD folic acid/thiamine Dispo: cct>35mins 06/02 liver imaging negative; replace lytes; f/u labs; improving. platelets improving; Na beginning to improve; replace K; cct>35mins. 06/03 Na continues to improve; replace K and phos. 06/04 electrolytes continue to improve; Hepatitis panel negative; Silver Carvajal MD, PhD.
[2019-06-04 07:02] LABS: PHOSPHORUS 3.1 MG/DL (2.3-4.7)
[2019-06-04] MEDS: POTASSIUM CHL 40 MEQ in SODIUM CHLORIDE 0.9% 1000ML 1,000 ML IV SCH ×3 (07:51→23:00)
[2019-06-04 08:24] LABS: LYMPHOCYTES % (MANUAL) 19 % (19-48); MONOCYTES % (MANUAL) 11 % (3.4-9.0); NEUTROPHILS % (MANUAL) 70 % (40-74); PLATELET ESTIMATE ADEQUATE; RBC MORPHOLOGY COMMENT NORMAL
[2019-06-04] MEDS: FOLIC ACID 1 MG TAB PO SCH (09:24)
[2019-06-04] MEDS: SUCRALFATE 1 GM/10 ML SUSP NG SCH ×4 (09:24→21:20)
[2019-06-04] MEDS: MULTIVITAMINS/MINERALS TAB PO SCH (09:24)
[2019-06-04] MEDS: PHOSPHORUS 250 MG TAB PO SCH ×2 (09:24→16:44)
[2019-06-04] MEDS: POTASSIUM CHLORIDE 20 MEQ TAB CR PO SCH ×2 (09:24→16:44)
[2019-06-04] MEDS: THIAMINE HCL 100 MG TAB PO SCH (09:24)
[2019-06-04] MEDS ORDERED: COSYNTROPIN 0.25 MG/VIAL VIAL INJ ONE (11:30)
--- NOTE | 2019-06-04 22:02 | NUR ---
Pulmonary / critical care medicine date of encounter 06/04/2019 SUBJECTIVE: patient continues improving Na 129 today k normal at 4.0 eating well BM+ no dizziness REVIEW OF SYSTEMS: no headaches, no double vision OBJECTIVE: VITAL SIGNS: vital signs stable noted and reviewed per chart record. GENERAL: NAD, alert & calm . Patient is oriented. HEENT: Normocephalic, atraumatic. NECK: Supple. Throat midline. LUNGS: Bilateral air entry, clear. CARDIOVASCULAR: S1, S2. No murmurs, rubs, or gallops. ABDOMEN: Soft, nontender. EXTREMITIES: No clubbing, no cyanosis, no edema. INTEGUMENT: No rash. no gashes LABORATORY DATA: sodium 126, potassium 4.0, IMPRESSION AND PLAN: 1. Critical hyponatremia, symptomatic/ improving. 2. Acute alcohol intoxication and chronic alcohol dependency. 3. Critical hyponatremia. 4. Hypophosphatemia. 5. Mild alcoholic hepatitis, active/ improving likely. 6. Moderate protein malnutrition. 7. Diarrhea 8. Encephalopathy, mild and toxic metabolic component. Possible underlying cerebral alcohol disease/early Wernicke encephalopathy. 9. Radiographic esophagitis continue slow repletion of sodium Alcohol abstinence - counselled at length today When necessary Librium okay-- not requiring Diet, give vitamin replacement thank you very much Dr. Carvajal.
[2019-06-04 23:58] LABS: POTASSIUM,URINE 57.1 mmol/L
[2019-06-05] VITALS (9 sets, daily range): BP systolic 141–163; BP diastolic 67–110
--- NOTE | 2019-06-05 06:21 | NUR ---
IM- progress note O/N no events ROS: no f/c/s/N/V/D/CP/sob/vision changes/skin rash/dizziness. v/s; revd PE: nad anicteric ns1s2 mod bs soft nt nd no e/t a&ox3; arenas skin dry n. affect labs/meds; revd A/P: 28yoM Severe hyponatremia Thrombocytopenia Hypophosphatemia Transaminitis Hypokalemia Alcoholism "Beer potomaina" PLAN 3% saline overnight; now stop and change to NS Hepatitis panel SW for counseling on alcoholism/AA/resources SCD folic acid/thiamine Dispo: cct>35mins 06/02 liver imaging negative; replace lytes; f/u labs; improving. platelets improving; Na beginning to improve; replace K; cct>35mins. 06/03 Na continues to improve; replace K and phos. 06/04 electrolytes continue to improve; Hepatitis panel negative; 06/05 check labs Silver Carvajal MD, PhD.
[2019-06-05 07:20] LABS: BASOPHILS # (AUTO) 0.1 (0.0-0.1); BASOPHILS % 0.3 % (0.0-1.0); EOSINOPHILS # (AUTO) 0.1 (0.0-0.4); EOSINOPHILS % 0.4 % (0.0-6.0); HEMATOCRIT 32.9 % (38.2-49.6); HEMOGLOBIN 11.1 g/dL (14.0-18.0); LYMPHOCYTES # (AUTO) 3.1 (1.0-3.2); LYMPHOCYTES % 17.6 % (18.0-39.1); MEAN CORPUSCULAR HEMOGLOBIN 31.8 pg (28-32); MEAN CORPUSCULAR HGB CONC 33.7 g/dL (31-35); MEAN CORPUSCULAR VOLUME 94.3 fL (81-99); MONOCYTES # (AUTO) 1.8 (0.2-0.8); NEUTROPHILS # (AUTO) 9.4 (2.1-6.9); PLATELET COUNT 300 x10e3/uL (140-360); RED BLOOD COUNT 3.49 x10e6/uL (4.3-5.7); RED CELL DISTRIBUTION WIDTH 13.3 % (11.7-14.4)
[2019-06-05 07:54] LABS: ANION GAP 11.8 mmol/L (8-16); BLOOD UREA NITROGEN 8 mg/dL (7-26); BUN/CREATININE RATIO 12 (6-25); CARBON DIOXIDE 28 mmol/L (22-29); CHLORIDE 97 mmol/L (98-107); CREATININE, SERUM 0.67 mg/dL (0.72-1.25); EST GLOMERULAR FILTRATION RATE > 60 ML/MIN (60-); GLUCOSE 97 mg/dL (74-118); POTASSIUM 3.8 mmol/L (3.5-5.1); SODIUM 133 mmol/L (136-145)
[2019-06-05] MEDS: SUCRALFATE 1 GM/10 ML SUSP NG SCH ×4 (08:07→20:45)
[2019-06-05 08:09] LABS: MAGNESIUM 2.1 MG/DL (1.3-2.1); PHOSPHORUS 3.8 MG/DL (2.3-4.7)
[2019-06-05] MEDS: MULTIVITAMINS/MINERALS TAB PO SCH (09:34)
[2019-06-05] MEDS: FOLIC ACID 1 MG TAB PO SCH (09:34)
[2019-06-05] MEDS: POTASSIUM CHLORIDE 20 MEQ TAB CR PO SCH ×2 (09:34→16:49)
[2019-06-05] MEDS: THIAMINE HCL 100 MG TAB PO SCH (09:34)
[2019-06-05] MEDS: PHOSPHORUS 250 MG TAB PO SCH ×2 (09:34→16:49)
[2019-06-05 10:06] LABS: LYMPHOCYTES % (MANUAL) 17 % (19-48); MONOCYTES % (MANUAL) 11 % (3.4-9.0); NEUTROPHILS % (MANUAL) 72 % (40-74); PLATELET ESTIMATE ADEQUATE; RBC MORPHOLOGY COMMENT NORMAL
[2019-06-05] MEDS: POTASSIUM CHL 40 MEQ in SODIUM CHLORIDE 0.9% 1000ML 1,000 ML IV SCH (10:42)
--- NOTE | 2019-06-05 13:53 | Diagnostic Imaging Report ---
Chest, 2 views, 06/05/2019. History: Fever. Comparison: 06/01/2019. Findings: The cardiomediastinal silhouette and pulmonary vasculature are within normal limits. The lungs are clear without evidence of consolidation or pleural effusion. There are no acute osseous or soft tissue abnormalities. Impression: No acute cardiopulmonary abnormality. Signed by: Tommy Lobato on 06/05/2019 1:50 PM
[2019-06-05 14:50] LABS: BILIRUBIN,URINE NEGATIVE (NEGATIVE); CLARITY,URINE CLEAR (CLEAR); COLOR,URINE YELLOW (YELLOW); KETONES,URINE NEGATIVE (NEGATIVE); LEUKOCYTE ESTERASE ,URINE NEGATIVE (NEGATIVE); NITRITE,URINE NEGATIVE (NEGATIVE); PROTEIN,URINE DIPSTICK NEGATIVE (NEGATIVE); URINE UROBILINOGEN 0.2 mg/dL (0.2 - 1)
--- NOTE | 2019-06-05 15:28 | NUR ---
Patient's blood pressure is 165/119. Awaiting return call from Dr. Carvajal.
[2019-06-05] MEDS ORDERED: METOPROLOL TARTRATE 25 MG TAB PO ONE (16:00)
[2019-06-05] MEDS: ALPRAZOLAM 0.25 MG TAB PO PRN (16:54)
--- NOTE | 2019-06-05 18:11 | NUR ---
Pulmonary / critical care medicine date of encounter 06/05/2019 SUBJECTIVE: patient continues improving Na 133 today k normal at 3.8 eats well only 1 bm watery REVIEW OF SYSTEMS: no headaches, no double vision OBJECTIVE: VITAL SIGNS: vital signs stable noted and reviewed per chart record. GENERAL: NAD, alert & calm . Patient is oriented. HEENT: Normocephalic, atraumatic. NECK: Supple. Throat midline. LUNGS: Bilateral air entry, clear. CARDIOVASCULAR: S1, S2. No murmurs, rubs, or gallops. ABDOMEN: Soft, nontender. EXTREMITIES: No clubbing, no cyanosis, no edema. INTEGUMENT: No rash. no gashes LABORATORY DATA: sodium 126, potassium 4.0, IMPRESSION AND PLAN: 1. Critical hyponatremia, symptomatic/ improving. 2. Acute alcohol intoxication and chronic alcohol dependency. 3. Critical hyponatremia. 4. Hypophosphatemia. 5. Mild alcoholic hepatitis, active/ improving likely. 6. Moderate protein malnutrition. 7. Diarrhea 8. Encephalopathy, mild and toxic metabolic component. Possible underlying cerebral alcohol disease/early Wernicke encephalopathy. 9. Radiographic esophagitis continue correction of sodium Alcohol abstinence - counselled at length today When necessary Librium okay-- not requiring Diet, give vitamin replacement thank you very much Dr. Carvajal.
[2019-06-05] MEDS: ACETAMINOPHEN 325 MG TAB PO PRN (20:45)
[2019-06-06] VITALS (8 sets, daily range): BP systolic 122–153; BP diastolic 69–94
[2019-06-06 05:29] LABS: BASOPHILS # (AUTO) 0.1 (0.0-0.1); BASOPHILS % 0.4 % (0.0-1.0); EOSINOPHILS % 0.2 % (0.0-6.0); HEMATOCRIT 33.4 % (38.2-49.6); HEMOGLOBIN 11.1 g/dL (14.0-18.0); LYMPHOCYTES # (AUTO) 2.6 (1.0-3.2); LYMPHOCYTES % 16.3 % (18.0-39.1); MEAN CORPUSCULAR HEMOGLOBIN 31.9 pg (28-32); MEAN CORPUSCULAR HGB CONC 33.2 g/dL (31-35); MONOCYTES # (AUTO) 1.4 (0.2-0.8); MONOCYTES % 8.8 % (4.4-11.3); NEUTROPHILS # (AUTO) 8.7 (2.1-6.9); PLATELET COUNT 345 x10e3/uL (140-360); RED BLOOD COUNT 3.48 x10e6/uL (4.3-5.7); RED CELL DISTRIBUTION WIDTH 13.9 % (11.7-14.4)
[2019-06-06] MEDS: ACETAMINOPHEN 325 MG TAB PO PRN ×2 (05:30→20:20)
--- NOTE | 2019-06-06 06:46 | NUR ---
IM- progress note O/N no events ROS: no f/c/s/N/V/D/CP/sob/vision changes/skin rash/dizziness. v/s; revd PE: nad anicteric ns1s2 mod bs soft nt nd no e/t a&ox3; arenas skin dry n. affect labs/meds; revd A/P: 28yoM Severe hyponatremia Thrombocytopenia Hypophosphatemia Transaminitis Hypokalemia Alcoholism "Beer potomaina" PLAN 3% saline overnight; now stop and change to NS Hepatitis panel SW for counseling on alcoholism/AA/resources SCD folic acid/thiamine Dispo: cct>35mins 06/02 liver imaging negative; replace lytes; f/u labs; improving. platelets improving; Na beginning to improve; replace K; cct>35mins. 06/03 Na continues to improve; replace K and phos. 06/04 electrolytes continue to improve; Hepatitis panel negative; 06/05 check labs 06/06 d/c planning; adjust BB up. monitor temp; WBC elevated, downward trend. Silver Carvajal MD, PhD.
[2019-06-06] MEDS ORDERED: CHLORASEPTIC SPRAY 177 ML BTL MM PRN (07:00)
[2019-06-06 07:04] LABS: BAND NEUTROPHILS % (MANUAL) 7 %; LYMPHOCYTES % (MANUAL) 8 % (19-48); MONOCYTES % (MANUAL) 11 % (3.4-9.0); NEUTROPHILS % (MANUAL) 74 % (40-74); POLYCHROMASIA FEW; RBC MORPHOLOGY COMMENT ABNORMAL
[2019-06-06 07:05] LABS: ANISOCYTOSIS SLIGHT; PLATELET ESTIMATE ADEQUATE; PLATELET MORPHOLOGY COMMENT NORMAL; POIKILOCYTOSIS SLIGHT
[2019-06-06] MEDS: SUCRALFATE 1 GM/10 ML SUSP NG SCH ×4 (07:30→20:15)
[2019-06-06] MEDS ORDERED: METOPROLOL TARTRATE 25 MG TAB PO SCH (09:00)
[2019-06-06] MEDS: FOLIC ACID 1 MG TAB PO SCH (09:04)
[2019-06-06] MEDS: METOPROLOL TARTRATE 25 MG TAB PO SCH ×2 (09:04→20:15)
[2019-06-06] MEDS: MULTIVITAMINS/MINERALS TAB PO SCH (09:04)
[2019-06-06] MEDS: THIAMINE HCL 100 MG TAB PO SCH (09:04)
[2019-06-06] MEDS: POTASSIUM CHLORIDE 20 MEQ TAB CR PO SCH ×2 (09:06→17:11)
--- NOTE | 2019-06-06 17:47 | NUR ---
Patient signed consent for EGD tomorrow, will be NPO after midnight. Medicated for nausea, no vomiting, will monitor.
--- NOTE | 2019-06-06 18:38 | NUR ---
Nutrition Screen Note RD Recommendation for Physician: -Rec regular diet as medically appropriate Plan of Care: RD following, monitoring for tolerance and adequacy Nutrition reason for involvement: LOS Primary Diagnose(s): hyponatremia PMH: none Ht: 67in Wt: 160lb BMI: 25.1kg/m2 IBW: 148lb +/- 10% RD Assessment: (06/06) Chart reviewed. Labs and meds reviewed. 28yo M, who was admitted for severe hyponatremia. Na level has trend upward. Pt with chronic alcohol dependency and drank 3 large beers a day for 3-4x a week. Currently receiving MVi with thiamine and folic acid. PCT recorded 75-100% meal intake since admission. Visited pt in the room. Pt reported good appetite but complained of nausea. Pt stated I feel sick and my tongue is on fire. NPO ordered for EGD tomorrow. No vomiting episode reported. LBM 06/06. Pt denied any chewing or swallowing difficulty. Will continue to monitor and follow. Current Diet: NPO for EGD Malnutrition Evaluation (06/06) The patient does not meet criteria for a specified degree of malnutrition at this time. Will re-evaluate at follow-up as appropriate. Diet Education Needs Assessment: Diet education not indicated. Nutrition Care Level: low Signed: Asia Tucker, MS, RD, LD
[2019-06-06] MEDS ORDERED: PROPOFOL IV EMULSION 10 MG/ML 50 ML VIAL ONE (18:52)
--- NOTE | 2019-06-06 19:23 | NUR ---
PT IS RESTING IN BED WITH FAMILY AT BEDSIDE. RESPIRATION IS EVEN AND UNLABORED, NO DISTRESS NOTED. BED IN THE LOWEST POSITION, LOCKED, AND CALL LIGHT WITHIN REACH. WILL CONTINUE TO MONITOR.
--- NOTE | 2019-06-06 23:58 | NUR ---
Pulmonary / critical care medicine date of encounter 06/06/2019 SUBJECTIVE: ate this am well large nausea retching at times poor energy now REVIEW OF SYSTEMS: no headaches, no double vision OBJECTIVE: VITAL SIGNS: vital signs stable noted and reviewed per chart record. GENERAL: NAD, alert & calm . Patient is oriented. HEENT: Normocephalic, atraumatic. NECK: Supple. Throat midline. LUNGS: Bilateral air entry, clear. CARDIOVASCULAR: S1, S2. No murmurs, rubs, or gallops. ABDOMEN: Soft, nontender. EXTREMITIES: No clubbing, no cyanosis, no edema. INTEGUMENT: No rash. no gashes LABORATORY DATA: Na 133, .67 cr. wbc 16. hct 33 IMPRESSION AND PLAN: 1. Critical hyponatremia, symptomatic/ improving. 2. Acute alcohol intoxication and chronic alcohol dependency. 3. Critical hyponatremia. 4. Hypophosphatemia. 5. Mild alcoholic hepatitis, active/ improving likely. 6. Moderate protein malnutrition. 7. Diarrhea 8. Encephalopathy, mild and toxic metabolic component. Possible underlying cerebral alcohol disease/early Wernicke encephalopathy. 9. Radiographic esophagitis continue correction of sodium Alcohol abstinence - counselled at length today librium prn, lower dose Diet, give vitamin replacement mother feels patient ready for EGD. d/w GI, they will consider scoping tomorrow thank you very much Dr. Carvajal.
[2019-06-07] MEDS ORDERED: CHLORDIAZEPOXIDE HCL 25 MG CAP PO PRN
[2019-06-07 00:28] VITALS: BP 117/61
[2019-06-07 05:42] LABS: BASOPHILS # (AUTO) 0.1 (0.0-0.1); BASOPHILS % 0.4 % (0.0-1.0); EOSINOPHILS % 0.1 % (0.0-6.0); HEMATOCRIT 33.4 % (38.2-49.6); HEMOGLOBIN 11.1 g/dL (14.0-18.0); LYMPHOCYTES # (AUTO) 2.1 (1.0-3.2); LYMPHOCYTES % 13.6 % (18.0-39.1); MEAN CORPUSCULAR HEMOGLOBIN 31.7 pg (28-32); MEAN CORPUSCULAR HGB CONC 33.2 g/dL (31-35); MEAN CORPUSCULAR VOLUME 95.4 fL (81-99); MONOCYTES # (AUTO) 1.3 (0.2-0.8); MONOCYTES % 8.2 % (4.4-11.3); NEUTROPHILS # (AUTO) 9.3 (2.1-6.9); NEUTROPHILS % 61.4 % (38.7-80.0); PLATELET COUNT 392 x10e3/uL (140-360); RED CELL DISTRIBUTION WIDTH 14.4 % (11.7-14.4)
[2019-06-07 06:07] LABS: ALANINE AMINOTRANSFERASE 300 IU/L (0-55); ALKALINE PHOSPHATASE 87 IU/L (40-150); ANION GAP 11.9 mmol/L (8-16); BLOOD UREA NITROGEN 9 mg/dL (7-26); BUN/CREATININE RATIO 12 (6-25); CARBON DIOXIDE 30 mmol/L (22-29); CHLORIDE 99 mmol/L (98-107); CREATININE, SERUM 0.73 mg/dL (0.72-1.25); EST GLOMERULAR FILTRATION RATE > 60 ML/MIN (60-); GLUCOSE 100 mg/dL (74-118); POTASSIUM 3.9 mmol/L (3.5-5.1); SODIUM 137 mmol/L (136-145)
[2019-06-07 06:09] VITALS: BP 106/64
[2019-06-07] MEDS: SUCRALFATE 1 GM/10 ML SUSP NG SCH ×4 (07:30→19:53)
--- NOTE | 2019-06-07 07:36 | NUR ---
Patient alert and responsive, no c/o pains, call light within reach, patient NPO for EGD today, no N/V, will monitor.
[2019-06-07 07:47] VITALS: BP 113/70
--- NOTE | 2019-06-07 07:50 | NUR ---
IM- progress note O/N no events ROS: no f/c/s/N/V/D/CP/sob/vision changes/skin rash/dizziness. v/s; revd PE: nad anicteric ns1s2 mod bs soft nt nd no e/t a&ox3; arenas skin dry n. affect labs/meds; revd A/P: 28yoM Severe hyponatremia Thrombocytopenia Hypophosphatemia Transaminitis Hypokalemia Alcoholism "Beer potomaina" PLAN 3% saline overnight; now stop and change to NS Hepatitis panel SW for counseling on alcoholism/AA/resources SCD folic acid/thiamine Dispo: cct>35mins 06/02 liver imaging negative; replace lytes; f/u labs; improving. platelets improving; Na beginning to improve; replace K; cct>35mins. 06/03 Na continues to improve; replace K and phos. 06/04 electrolytes continue to improve; Hepatitis panel negative; 06/05 check labs 06/06 d/c planning; adjust BB up. monitor temp; WBC elevated, downward trend. 06/07 d/c planning; endoscopy today- possible d/c later today; Silver Carvajal MD, PhD.
[2019-06-07] MEDS ORDERED: SUCRALFATE1 G/10 ML NG (07:53)
[2019-06-07] MEDS ORDERED: FOLIC ACID1 MG PO (07:53)
[2019-06-07] MEDS ORDERED: KLOR-CON M2020 MEQ PO (07:53)
[2019-06-07] MEDS ORDERED: CHLORDIAZEPOXID25 MG PO (07:53)
[2019-06-07] MEDS ORDERED: ZOFRAN4 MG PO (07:53)
[2019-06-07] MEDS ORDERED: VITAMIN B-1100 MG PO (07:53)
[2019-06-07] MEDS ORDERED: LOPRESSOR25 MG PO (07:53)
[2019-06-07] MEDS ORDERED: Multivitamins/Minerals PO (07:53)
[2019-06-07 08:03] LABS: ANISOCYTOSIS SLIGHT; EOSINOPHILS % (MANUAL) 1 % (0-7); LYMPHOCYTES % (MANUAL) 16 % (19-48); METAMYELOCYTES % (MANUAL) 4 % (0-0); MONOCYTES % (MANUAL) 4 % (3.4-9.0); MYELOCYTES % (MANUAL) 2 % (0-0); NEUTROPHILS % (MANUAL) 72 % (40-74); NUCLEATED RED BLOOD CELLS 1; PLATELET ESTIMATE ADEQUATE; PLATELET MORPHOLOGY COMMENT NORMAL; POLYCHROMASIA FEW; RBC MORPHOLOGY COMMENT ABNORMAL
[2019-06-07] MEDS: METOPROLOL TARTRATE 25 MG TAB PO SCH (09:00)
[2019-06-07] MEDS: POTASSIUM CHLORIDE 20 MEQ TAB CR PO SCH ×2 (09:00→16:14)
[2019-06-07] MEDS: MULTIVITAMINS/MINERALS TAB PO SCH (09:00)
[2019-06-07] MEDS: THIAMINE HCL 100 MG TAB PO SCH (09:00)
[2019-06-07] MEDS: FOLIC ACID 1 MG TAB PO SCH (09:00)
[2019-06-07 09:42] VITALS: BP 113/70
--- NOTE | 2019-06-07 09:43 | NUR ---
Call to Dr. Abby Navarrete regarding time frame for EGD, left message and waiting for call back.
[2019-06-07 11:36] VITALS: BP 124/83
--- NOTE | 2019-06-07 11:58 | NUR ---
Patient picked up at this time for EGD, rounds by hematology/oncology and cleared patient for discharge.
--- NOTE | 2019-06-07 12:33 | Progress Note ---
DATE: 06/07/2019 Renal Progress Note SUBJECTIVE: Followed for electrolyte abnormalities including profound hypokalemia, hyponatremia. The patient from renal standpoint has recovered his electrolyte derangements. His sodium is 137, potassium 3.9, calcium is 9 today. Kidney function is normal. No nausea, no vomiting, no shortness of breath. OBJECTIVE: VITAL SIGNS: Have been noted and are stable. LUNGS: Clear to auscultation bilaterally. CARDIOVASCULAR: S1, S2. No rub. ABDOMEN: Soft, nontender. EXTREMITIES: No edema. LABORATORY DATA: As follows, sodium 137, potassium 3.9, calcium 9.0. IMPRESSION AND PLAN: 1. Hypokalemia, profound initially has resolved now. Continue to monitor on current regimen. 2. Hyponatremia, also resolved. 3. Renal insufficiency, resolved. 4. From renal standpoint, patient is stable, reorder labs for 06/09/2019. Davonte Rasmussen MD TH/MODL /[id number]
[2019-06-07] MEDS ORDERED: FLUCONAZOLE 200 MG/100 ML 100 ML IV ONE (14:06)
--- NOTE | 2019-06-07 14:19 | NUR ---
Rounds by Dr. Cody and oumar from his perspective to discharge patient.
--- NOTE | 2019-06-07 14:20 | NUR ---
Patient completed EGD and found esophagitis, ulcerative gastritis and biopsy done. Patient to complete one time dose of Diflucan due to concerns for thrush and if can tolerated diet for dinner may discharge per Dr. Navarrete.
[2019-06-07] MEDS ORDERED: FENTANYL CITRATE/PF 100MCG/2 ML INJ ONE (14:53)
[2019-06-07] MEDS ORDERED: MIDAZOLAM HCL 2 MG/2 ML VIAL ONE (14:53)
--- NOTE | 2019-06-07 15:16 | NUR ---
Pulmonary / critical care medicine date of encounter 06/07/2019 SUBJECTIVE: ate ok yesterday after zofran, still some nausea today did the EGD with severe esophagitis, ulcerated. possible lesa REVIEW OF SYSTEMS: no headaches, no double vision OBJECTIVE: VITAL SIGNS: vital signs stable noted and reviewed per chart record. GENERAL: NAD, alert & calm . Patient is oriented. HEENT: Normocephalic, atraumatic. NECK: Supple. Throat midline. LUNGS: Bilateral air entry, clear. CARDIOVASCULAR: S1, S2. No murmurs, rubs, or gallops. ABDOMEN: Soft, nontender. EXTREMITIES: No clubbing, no cyanosis, no edema. INTEGUMENT: No rash. no gashes LABORATORY DATA: Na 137. 3.9 k, cr 0.73, wbc 15, hct 33, plt 392. alt 300 IMPRESSION AND PLAN: 1. Critical hyponatremia, symptomatic/ improving. 2. Acute alcohol intoxication and chronic alcohol dependency. 3. Critical hyponatremia. 4. Hypophosphatemia. 5. Mild alcoholic hepatitis, active/ improving likely. 6. Moderate protein malnutrition. 7. Diarrhea 8. Encephalopathy, mild and toxic metabolic component. Possible underlying cerebral alcohol disease/early Wernicke encephalopathy. 9. Radiographic esophagitis EGD today Alcohol abstinence - counselled at length today PPI bid Follow of hepatitis librium prn, lower dose Diet, give vitamin replacement thank you very much Dr. Carvajal.
[2019-06-07 15:57] VITALS: BP 126/83
[2019-06-07] MEDS: ALPRAZOLAM 0.25 MG TAB PO PRN (16:12)
--- NOTE | 2019-06-07 16:14 | Operative Report ---
DATE OF PROCEDURE: 06/07/2019 SURGEON: Darshan Navarrete MD PROCEDURE: An EGD with brushings and biopsies. INDICATIONS FOR PROCEDURE: Abnormal esophagus on CT scan, history of acid reflux. MEDICATIONS: The patient was done under MAC, please see anesthesiologist's note. PROCEDURE IN DETAIL: With the patient in left lateral decubitus position, a flexible fiberoptic Olympus gastroscope was introduced into the esophagus under direct visualization without any difficulty. The distal half of the esophagus was diffusely ulcerated and brushings were obtained to rule out superimposed Lisseth esophagitis. The scope was then advanced with ease into the stomach traversing a small hiatal hernia. Mucosa overlying the antrum and the body revealed some patchy erythema and [id number] edema and biopsies were obtained and sent to stain for H pylori. Pylorus was of normal contour and shape, it was intubated with ease and the scope was advanced all the way to the second portion of the duodenum. The scope was then withdrawn slowly, mucosa overlying the proximal second portion and duodenal bulb appeared to be within normal limits. The scope was then withdrawn back into the stomach and retroflexed. Mucosa overlying the fundus and cardia appeared to be within normal limits. The scope was then straightened out, it was subsequently withdrawn. The patient tolerated the procedure well. IMPRESSION: 1. Diffusely ulcerated distal half of esophagus. 2. Rule out superimposed Lisseth esophagitis, brushings obtained. 3. Hiatal hernia. 4. Gastritis, biopsied. Biopsies sent to stain for Helicobacter pylori. PLAN: Follow up histology. Initiate Protonix 40 mg one p.o. a.c. b.i.d. Darshan Navarrete MD [facility] [place] /[id number] cc: Silver Carvajal MD
--- NOTE | 2019-06-07 17:31 | NUR ---
Patient returned from EGD, VSS, tachycardia when ambulating, beta blockers given. Tolerated GI soft diet and no N/V, medicated for anxiety, will monitor.
--- NOTE | 2019-06-07 17:33 | NUR ---
Ok to discharge patient, provided with prescriptions, education information, IV line removed and cath tip in place. OOB and ambulating unit, all disciplines cleared for discharge, patient will follow up with nephrology, PCP and GI upon discharge.
--- NOTE | 2019-06-07 19:14 | NUR ---
Report given to on coming nurse as patient waiting for his ride to go home. All discharge information and instructions with prescriptions given to patient already. On coming nurse will release patient.
--- NOTE | 2019-06-07 19:15 | NUR ---
Dr. Carvajal cleared patient for discharge as well.
--- NOTE | 2019-06-07 20:44 | NUR ---
Discharge patient home via private auto. All belonging with patient. Denies pain at this time. VSS. No complaints. Both parents with patient.
== END 2019-06-07 21:00 | disposition home or self-care (01) | DRG 917 ==
LOC: ER 19:16 → ERHOLD 23:55 → ICU 23:57 → MED/SURG2 06-03 20:16
PROVIDERS: ADMIT Internal Medicine; ATTEND Internal Medicine
PROC: 0DB58ZX Excision of Esophagus, Via Natural or Artificial Opening Endoscopic, Diagnostic (ICD-10-PCS; principal; 2019-06-07 13:18)
PROC: 0DB68ZX Excision of Stomach, Via Natural or Artificial Opening Endoscopic, Diagnostic (ICD-10-PCS; 2019-06-07 13:18)
DX: T51.0X1A Toxic effect of ethanol, accidental (unintentional), initial encounter (principal); G92 Toxic encephalopathy; E87.1 Hypo-osmolality and hyponatremia; E44.0 Moderate protein-calorie malnutrition; E51.2 Wernicke's encephalopathy; K22.10 Ulcer of esophagus without bleeding; F10.27 Alcohol dependence with alcohol-induced persisting dementia; F10.229 Alcohol dependence with intoxication, unspecified; E86.0 Dehydration; R41.0 Disorientation, unspecified; K70.10 Alcoholic hepatitis without ascites; E83.39 Other disorders of phosphorus metabolism; D69.6 Thrombocytopenia, unspecified; E87.6 Hypokalemia; Z91.81 History of falling; S40.021A Contusion of right upper arm, initial encounter; R19.7 Diarrhea, unspecified; K20.8 Other esophagitis; K44.9 Diaphragmatic hernia without obstruction or gangrene; K29.70 Gastritis, unspecified, without bleeding; N28.9 Disorder of kidney and ureter, unspecified; K76.0 Fatty (change of) liver, not elsewhere classified; K82.8 Other specified diseases of gallbladder; N28.1 Cyst of kidney, acquired; Y90.0 Blood alcohol level of less than 20 mg/100 ml
CPT/HCPCS: 36415; 43235; 43239; 70450; 71045; 71046; 74177; 76705; 80048; 80053; 80307; 80320; 81001; 82140; 82533; 82948; 83630; 83690; 83735; 83935; 84100; 84132; 84133; 84300; 85025; 85610; 85730; 87040; 87045; 87086; 87106; 87177; 87205; 87328; 87493; 88112; 88305; 88312; 93005; 99284; J0834; J1450; J2250; J2405; J3010; J3411; J3475; J3480; J7030; J7040; J7050; Q9967